=== PATIENT | female | born 1955 | race Caucasian/White ===

== ENCOUNTER → 2017-04-28 | Outpatient (CLI) | payer OTHER ==
[~2017-04-28] MED LIST: ACTOS30 MG PO; AMLODIPINE BESYL5 MG PO; ARANESP100 MCG/0. INJ; ASPIRIN325 M1 PO; ASPIRIN81 M2 PO; ATENOLOL25 MG PO; BACTROBAN22 GM; BAYER ASPIRIN325 M1 PO; BUPROPION XL300 MG PO; BUSPIRONE HCL10 M1 PO; CLARITIN10 M2 PO; COMBIVENT14.7 GM; DIAZEPAM PO; DIAZEPAM5 MG/M2 PO; DOCUSATE SODIU100 MG PO; FERROUS GL325 ( 36 ) PO; FLUOXETINE HCL20 M1 PO; FOLIC ACID PO; FOLIC ACID800 MCG PO; FUROSEMIDE40 MG PO; GABAPENTIN400 MG PO; GABAPENTIN600 MG PO; GABAPENTIN800 MG PO; HUMIRA40 MG/0.1 SQ; HYDROXYZINE HCL25 M1 PO; IMDUR PO; IMDUR-ER30 MG PO; IMDUR-ER60 M1 PO; IRON1 TAB PO; JANUVIA PO; KENALOG IN ORABA5 GM; LAMOTRIGINE25 M1 PO; LASIX PO; LEVOFLOXACIN500 MG PO; LIPITOR20 MG PO; LIPITOR40 MG PO; LISINOPRIL10 MG PO; METHOCARBAMOL500 MG PO; MIRALAX119 GM; MONTELUKAST SOD10 MG PO; NEURONTIN300 MG PO; NITROGLYGERIN0.4 MG; NORVASC10 MG PO; NYSTATIN1 EAC1 TOP; OMEPRAZOLE20 M2 PO; OXYCODON HCL-AP1 TA2; OXYCODONE HCL15 MG PO; PERCOCET 10/3251 TAB PO; PHENERGAN25 MG; PRILOSEC PO; PROMETHAZINE D118 ML PO; RANEXA500 MG PO; SENNA8.6 M1 PO; SIMVASTATIN40 MG PO; SINEMET-25/1001 TAB PO; SINGULAIR PO; TAMOXIFEN CITRA20 MG PO; TENORMIN25 MG PO; TRADJENTA5 MG PO; TRIAMCINOLONE AC1 GM; TRIAMCINOLONE AC1 GM EXT; VASOTEC10 MG PO; VIT B-12 PO; VITAMIN C500 M1 PO; VITAMIN D-32000 UNI1 PO; VITAMIN D50000 UNIT PO; WELLBUTRIN PO; WELLBUTRIN SR150 MG PO; WELLBUTRIN XL150 MG PO; ZYCLARA1 EACH TP; ZYLOPRIM PO; [UNRECOGNIZED DRUG - OTHER]
--- NOTE | ~2017-04-28 | CT57 ---
[facility] A Service of [facility] RADIOLOGY TEXT RESULTS PATIENT: TAMEKA MCKEON LOCATION: [facility] : 51 UNIT #: [id number] AGE: [address]: Landon Fisher MD SEX: F ORDER DR: [id number] [place], [place] [address] [id number] O MR#: [id number] Acc #: [id number] NAME: TAMEKA MCKEON : 1955 SEX: F STUDY DATE/TIME: 04/28/2017 7:55 UNIT: [facility] ROOM: STUDY DESCRIPTION: CT Chest Wo Cont Attending Physician: Landon Fisher M.D. Referring Physician: Landon Fisher M.D. Ordering Physician: Landon Fisher M.D. Primary Care Physician: Juno Hollingsworth M.D. MEDICAL IMAGING REPORT This report is preliminary unless electronic signature is present EXAM CT chest without contrast INDICATIONS Followup breast cancer and lung cancer. Observation for metastatic disease. TECHNIQUE CT of the chest was performed without contrast. Coronal and sagittal reformatted images were obtained. This CT exam was performed with one or more of the following radiation dose reduction techniques: automatic control, adjustment of mA and/or kV according to patient size, and iterative reconstruction. Comparison with 05/19/2016. FINDINGS Stable right upper lobe micronodule on image 15. Stable scarring within the left lung. No new nodule or suspicious nodule. Prior left lower lobectomy. Coronary artery calcification. No suspicious lymphadenopathy. No pleural effusion. Limited imaging in the upper abdomen is unremarkable. The bone windows are unremarkable. IMPRESSION No evidence of metastatic disease. Dictated by... Johnny Hadley M.D. THIS IS AN ELECTRONICALLY VERIFIED REPORT Johnny Hadley M.D. at 05/03/2017 11:21 AM YUE/gerald TD: 04/29/2017 04:27 JOB #: [id number] [facility] A Service of [facility] RADIOLOGY TEXT RESULTS PATIENT: TAMEKA MCKEON LOCATION: [facility] #: [id number] : 51 UNIT #: [id number] AGE: [address]: Landon Fisher MD SEX: F ORDER DR: MEDICAL IMAGING REPORT Page 1 of 1 COPY
== END | disposition home or self-care (01) ==
LOC: CCAT 07:26
DX: C50.919 Malignant neoplasm of unspecified site of unspecified female breast (principal); C34.90 Malignant neoplasm of unspecified part of unspecified bronchus or lung; N18.9 Chronic kidney disease, unspecified
CPT/HCPCS: 71250